=== PATIENT | female | born 1970 | race Caucasian/White ===

== ENCOUNTER 2019-07-05 16:48 | Emergency (ER) | payer OTHER, MEDICAID ==
[~2019-07-05] VITALS: Ht 154.9 cm; Wt 68.9 kg
[~2019-07-05 16:48] MED LIST: DEXT10TA23 PO; SERT50TA PO; topomax
[2019-07-05 17:15] LABS: BASO # 0.1 x10^3/uL (0.0-0.2); BASO % 1 % (0-3); EOS # 0.3 x10^3/uL (0.0-0.7); EOS % 2 % (0-3); HEMOGLOBIN 16.5 g/dL (12.0-15.5); LYMPH % 11 % (24-48); MEAN CORPUSCULAR HEMOGLOBIN 31 pg (25-35); MEAN CORPUSCULAR HGB CONC 33 g/dL (31-37); MEAN CORPUSCULAR VOLUME 93 fL (79-100); MONO # 1.3 x10^3/uL (0.0-1.1); MONO % 7 % (0-9); NEUT # 14.2 x10^3uL (1.8-7.7); NEUT % 79 % (31-73); PLATELET COUNT 329 x10^3/uL (140-400); RED BLOOD COUNT 5.38 x10^6/uL (3.50-5.40); RED CELL DISTRIBUTION WIDTH 13.3 % (11.5-14.5); WHITE BLOOD COUNT 17.9 x10^3/uL (4.0-11.0)
--- NOTE | 2019-07-05 17:27 | PHYS DOC ---
Past History Past Medical History: Anxiety, Depression, Fibromyalgia, Other (JETT DAVIS Jr. DO) Past Surgical History: Hysterectomy, Tonsillectomy (JETT DAVIS Jr. DO) Smoking: Cigarettes Alcohol Use: None Drug Use: None (JETT DAVIS Jr., DO) Adult General Chief Complaint Chief Complaint: ALTERED MENTAL STATUS [facility] HPI Patient is a 48-year-old female who presents with report of altered mental status. Patient was brought in by her daughter after being found with mental status change at home. Daughter states that she had gone into home and found patient lying on floor, stating that initially she was unresponsive. Upon arrival, patient unable to answer questions and is only complaining of neck and back pain with very slurred speech. Daughter indicates that patient's boyfriend had tried to help her with some back pain recently and had picked her up and cracked her back that patient has had an increase in level of pain since that time. Patient's last known normal was 3 days ago. Additional history is limited due to mental status change.[] (JETT DAVIS Jr. DO) Review of Systems Review of Systems Constitutional: Denies fever or chills [] Respiratory: No report of shortness of breath [] Cardiovascular: No additional information not addressed in HPI [] GI: No report of vomiting or diarrhea [] Musculoskeletal: Complains of back and neck pain [] Integument: Denies rash or skin lesions [] Neurologic: Complains of headache. [] All other systems were reviewed and found to be within normal limits, except as documented in this note. (JETT DAVIS Jr. DO) Allergies Allergies Allergies Coded Allergies Type Severity Reaction Last Updated Verified No Known Drug Allergies 01/06/14 No (JETT DAVSI Jr., DO) Physical Exam Physical Exam Constitutional: Well developed, well nourished, appears intoxicated. [] HENT: Normocephalic, atraumatic, bilateral external ears normal, oropharynx moist, no oral exudates, nose normal. [] Eyes: Pupils equal, 3 mm and sluggish to light, EOMI, conjunctiva normal, no discharge. [] Neck: Normal range of motion, supple, no stridor. [] Cardiovascular: Regular rate and rhythm[] Lungs & Thorax: Bilateral breath sounds clear to auscultation [] Abdomen: Bowel sounds normal, soft, no tenderness. [] Skin: Warm, dry, no erythema, no rash. [] Extremities: No tenderness, no cyanosis, no clubbing, ROM intact, no edema. [] Neurologic: Awake and alert, confused, slurred speech, no obvious focal deficits noted. [] (JETT DAVIS Jr., DO) Current Patient Data Lab Results Laboratory Tests Test 07/05/19 16:06 White Blood Count 17.9 x10^3/uL (4.0-11.0) H Red Blood Count 5.38 x10^6/uL (3.50-5.40) Hemoglobin 16.5 g/dL (12.0-15.5) H Hematocrit 50.0 % (36.0-47.0) H Mean Corpuscular Volume 93 fL (79-100) Mean Corpuscular Hemoglobin 31 pg (25-35) Mean Corpuscular Hemoglobin Concent 33 g/dL (31-37) Red Cell Distribution Width 13.3 % (11.5-14.5) Platelet Count 329 x10^3/uL (140-400) Neutrophils (%) (Auto) 79 % (31-73) H Lymphocytes (%) (Auto) 11 % (24-48) L Monocytes (%) (Auto) 7 % (0-9) Eosinophils (%) (Auto) 2 % (0-3) Basophils (%) (Auto) 1 % (0-3) Neutrophils # (Auto) 14.2 x10^3uL (1.8-7.7) H Lymphocytes # (Auto) 2.0 x10^3/uL (1.0-4.8) Monocytes # (Auto) 1.3 x10^3/uL (0.0-1.1) H Eosinophils # (Auto) 0.3 x10^3/uL (0.0-0.7) Basophils # (Auto) 0.1 x10^3/uL (0.0-0.2) Platelet Estimate Pending (JETT DAVIS Jr., DO) EKG EKG [] (JETT DAVIS Jr., DO) EKG Interpretation EKG shows a sinus bradycardia 59 bpm. No acute morphology (CHEMA PEDRAZA MD) Radiology/Procedures Radiology/Procedures [] (JETT DAVIS Jr., DO) Course & Med Decision Making Course & Med Decision Making Pertinent Labs and Imaging studies reviewed. (See chart for details) Patient moved to room upon arrival was evaluated by your medical staff after which an IV was established and blood work drawn. Imaging studies to include head, cervical spine, thoracic and lumbar spine CTs have been ordered and are pending. At this time, workup is pending, and patient is being signed out to Dr. Pedraza at 6:00 PM. (JETT DAVIS Jr. DO) Course & Med Decision Making [address] [address] IMAGING REPORT Signed PATIENT: NIYA ZURITA SACCOUNT: [id number] : 1970 LOCATION: ER AGE: 48 SEX: F EXAM STATUS: REG ER ORD. PHYSICIAN: JETT DAVIS Jr., DO REASON: BACK PAIN; FALL PROCEDURE: CT LUMBAR SPINE WO CONTRAST CT scan of the thoracic and lumbar spine without contrast 10/14/2019 CLINICAL HISTORY: Mid and low back pain post fall. TECHNIQUE: Unenhanced, contiguous, 0.625 mm axial sections were obtained through the thoracic and lumbar spine. 3 mm reconstructed sagittal, axial and coronal images were obtained. One or more of the following individualized dose reduction techniques were utilized for this study: 1. Automated exposure control. 2. Adjustment of the mA and/or kV according to patient size. 3. Use of iterative reconstruction technique. FINDINGS: Sagittal and coronal reconstructed images demonstrate very mild S-shaped curvature of the thoracolumbar spine. Degenerative changes are seen throughout the thoracic and lumbar disc spaces consisting of varying degrees of disc space narrowing, vertebral endplate sclerosis and mild to moderate anterior vertebral body osteophyte formation. Atherosclerotic calcification of the thoracic and abdominal aorta is seen. A 3 mm nonobstructing calculus is seen involving the mid pole of the right kidney. No fracture or subluxation of the thoracic or lumbar vertebrae seen. Degenerative changes are seen involving the facet joints throughout the mid and lower thoracic and lumbar spine. No fracture or subluxation of the thoracic or lumbar vertebrae is seen. IMPRESSION: No fracture or subluxation of the thoracic or lumbar vertebrae is seen. Electronically signed by: Benoit Mendoza MD (07/05/2019 6:33 PM) [facility] DICTATED AND SIGNED BY: BENOIT MENDOZA MD DATE: 07/05/19 436 CC: JETT DAVIS Jr. DO; KAYCE NUNO APRN ~ Procedure Note: Need to determine possible cause of mental status change and headache. Hx. elevated WBC 17. 9, with 85 Segs, UA neg., Tox. screen negative. Flu and Strep neg. CXR no infiltrate. Pt states has chronic back pain and neck pain. Hx. 2 days ago increased headache, malaise, some fever and chills. States she is confused, like if she is drunk. Denies drug or recent alcohol use.. Spinal Tap- risk and benefits discussed with patient. Patient placed in the right lateral position. Sterile Gown and mask and technique. Betadine prep and sterile draping -lumbar interspace L4 and 5. 2% lidocaine injected subcutaneous.. Cannulated with a 20-gauge with return CSF. Samples sent for labs. Antibiotics started after solumedrol and cultures. Discussed presentation, testing and tx. plan with Dr. Simmons and Dr. Mancini - ID. Pt. to transfer to [facility]- Possible need for MRI. Impression: 1. Mental Status Change ( Reportedly nl. mental status 3 days ago) 2. Head Ache- acute onset two days ago with malaise and confusion 3. Chronic Back Pain 4. Leukocytosis 17.9 with 85 Seg 5. Elevated RBC Spinal Tap- 221 6. HTN - accelerated 7. Cervical Adenopathy Viral vs bleed? Possible need for MRI- Will cover for meningitis at this time. (CHEMA PEDRAZA MD) Dragon Disclaimer Dragon Disclaimer This electronic medical record was generated, in whole or in part, using a voice recognition dictation system. (JETT DAVIS Jr. DO) Departure Departure: Disposition: 01 HOME/RESIDENCE PRIOR TO ADM Condition: STABLE Referrals: KAYCE NUNO APRN (PCP) Dragon Disclaimer This chart was dictated in whole or in part using Voice Recognition software in a busy, high-work load, and often noisy Emergency Department environment. It may contain unintended and wholly unrecognized errors or omissions. (CHEMA PEDRAZA MD) JETT DAVIS Jr., DO Jul 05, 2019 17:27 CHEMA PEDRAZA MD Jul 06, 2019 01:15
[2019-07-05 17:30] LABS: AMPHETAMINE/METHAMPHETAMINE NEG (NEG); BARBITURATES NEG (NEG); BENZODIAZEPINES NEG (NEG); CANNABINOIDS NEG (NEG); COCAINE NEG (NEG); METHADONE NEG (NEG); OPIATES NEG (NEG); PHENCYCLIDINE NEG (NEG)
[2019-07-05 17:49] LABS: BACTERIA,URINE 0 /HPF (0-FEW); BILIRUBIN,URINE NEG (NEG); CLARITY,URINE CLEAR; COLOR,URINE YELLOW; GLUCOSE,URINE NEG (NEG); NITRITE,URINE NEG (NEG); RBC,URINE 0 /HPF (0-2); SQUAMOUS EPITHELIAL CELL,UR OCC /LPF; UROBILINOGEN,URINE 0.2 mg/dL (0.2 mg/dL); WBC,URINE 0 /HPF (0-4)
[2019-07-05 17:50] LABS: AMORPHOUS SEDIMENT,UR PRESENT /HPF
[2019-07-05 18:01] LABS: % LYMPHS 9 % (24-48); % MONOS 6 % (0-10); % SEGS 85 % (35-66)
--- NOTE | 2019-07-05 18:01 | RAD ---
Exam: CT head and cervical spine INDICATION: Altered mental status and neck pain TECHNIQUE: Sequential axial images through the head and cervical spine were obtained without the administration of IV contrast. Comparisons: None FINDINGS: Head: No focal parenchymal lesion or hemorrhage is identified. There is no midline shift or sulcal effacement. No acute vascular territory infarction is identified. Bloom-white distinction is preserved. The ventricular system is within normal limits without compression hydrocephalus. The basal cisterns are well maintained. Air-fluid levels noted within the maxillary sinuses bilaterally. Mild mucosal thickening of the ethmoid air cells. No acute fractures. Cervical spine: Straightening of the cervical spine which may be positional. Vertebral body heights are well-maintained. No fracture to the cervical spine. At C5-C6 there is mild bilateral uncovertebral arthropathy without significant neural foraminal or spinal canal stenosis. Several prominent bilateral upper cervical lymph nodes. Otherwise, visualized paraspinal soft tissues are unremarkable. IMPRESSION: 1. No acute intracranial abnormality. Sinus disease described above. 2. Negative CT C-spine for acute traumatic injury. No significant spondylotic change of the cervical spine. 3. Several prominent and mildly enlarged upper cervical lymph nodes bilaterally which are nonspecific and may be reactive. Exposure: One or more of the following in the visualized dose reduction techniques were utilized for this examination: 1. Automated exposure control 2. Adjustment of the MA and/or KV according to patient size Use of iterative of reconstructive technique Electronically signed by: Albina Leach MD (07/05/2019 5:58 PM) [facility]
[2019-07-05 18:02] LABS: PLT ESTIMATE ADEQUATE (ADEQUATE)
--- NOTE | 2019-07-05 18:36 | RAD ---
CT scan of the thoracic and lumbar spine without contrast 10/14/2019 CLINICAL HISTORY: Mid and low back pain post fall. TECHNIQUE: Unenhanced, contiguous, 0.625 mm axial sections were obtained through the thoracic and lumbar spine. 3 mm reconstructed sagittal, axial and coronal images were obtained. One or more of the following individualized dose reduction techniques were utilized for this study: 1. Automated exposure control. 2. Adjustment of the mA and/or kV according to patient size. 3. Use of iterative reconstruction technique. FINDINGS: Sagittal and coronal reconstructed images demonstrate very mild S-shaped curvature of the thoracolumbar spine. Degenerative changes are seen throughout the thoracic and lumbar disc spaces consisting of varying degrees of disc space narrowing, vertebral endplate sclerosis and mild to moderate anterior vertebral body osteophyte formation. Atherosclerotic calcification of the thoracic and abdominal aorta is seen. A 3 mm nonobstructing calculus is seen involving the mid pole of the right kidney. No fracture or subluxation of the thoracic or lumbar vertebrae seen. Degenerative changes are seen involving the facet joints throughout the mid and lower thoracic and lumbar spine. No fracture or subluxation of the thoracic or lumbar vertebrae is seen. IMPRESSION: No fracture or subluxation of the thoracic or lumbar vertebrae is seen. Electronically signed by: Benoit Mendoza MD (07/05/2019 6:33 PM) [facility]
[2019-07-05] MEDS ORDERED: IV RINGERS SOLUTION,LACTATED 1,000 ML IV ONE (19:00)
[2019-07-05] MEDS ORDERED: LIDOCAINE 1% Multi-Dose 20 ML VIAL. ONE (19:39)
[2019-07-05] MEDS ORDERED: MORPHINE SULFATE 10 MG/ML SYRINGE. ONE (19:44)
[2019-07-05] MEDS ORDERED: methylPREDNISolone SOD SUCC PF 125 MG/2 ML VIAL. IV ONE (19:45)
[2019-07-05] MEDS ORDERED: LIDOCAINE 1%/EPI 1:100,000 20 ML VIAL. ONE (19:55)
[2019-07-05 19:57] LABS: INFLUENZA A PATIENT NEGATIVE (NEGATIVE)
[2019-07-05 19:58] LABS: INFLUENZA B PATIENT NEGATIVE (NEGATIVE)
[2019-07-05] MEDS ORDERED: IV NORMAL SALINE 500ML 500 ML ONE (20:37)
[2019-07-05] MEDS ORDERED: IV NORMAL SALINE 100ML 100 ML ONE (20:38)
[2019-07-05] MEDS ORDERED: VANCOMYCIN 1 GM VIAL. ONE (20:38)
[2019-07-05] MEDS ORDERED: VANCOMYCIN 1 GM in IV NORMAL SALINE 250ML 250 ML IV ONE (21:00)
[2019-07-05] MEDS ORDERED: VANCOMYCIN 1.75 GM in IV NORMAL SALINE 500ML 500 ML IV ONE (21:00)
[2019-07-05 21:45] LABS: CSF PROTEIN 45.2 mg/dL (15.0-45.0)
[2019-07-05 21:47] LABS: CSF CLARITY CLEAR; CSF COLOR COLORLESS
[2019-07-05 21:48] LABS: CSF RBC COUNT 221; CSF WBC COUNT 0
[2019-07-05] MEDS ORDERED: ACYCLOVIR SODIUM 1,000 MG in IV DEXTROSE 5% 250 ML IV SCH (22:00)
[2019-07-05] MEDS ORDERED: LABETALOL 20 MG/4 ML DISP.SYRIN. IVP ONE (22:15)
[2019-07-05 22:25] LABS: CALCIUM 9.3 mg/dL (8.5-10.1); CREATININE 0.9 mg/dL (0.6-1.0); GFR 66.3; POTASSIUM 4.1 mmol/L (3.5-5.1)
[2019-07-05] MEDS ORDERED: ACYCLOVIR SODIUM 500 MG/10 ML VIAL IV ONE (22:30)
[2019-07-05] MEDS ORDERED: IV DEXTROSE 5% 250 ML IV ONE (22:30)
[2019-07-05] MEDS ORDERED: AMPICILLIN 2 GM in IV NORMAL SALINE 100ML 100 ML IV STA (22:32)
[2019-07-05] MEDS ORDERED: LABETALOL 100 MG/20 ML VIAL. IV ONE (22:40)
[2019-07-06] MEDS ORDERED: IV NORMAL SALINE 100ML 100 ML ONE (00:22)
[2019-07-06] MEDS ORDERED: AMPICILLIN 500 MG VIAL IV ONE ×2 (00:22→01:00)
[2019-07-06 01:47] VITALS: BP 154/82
== END 2019-07-06 02:04 | disposition short-term general hospital (02) ==
LOC: ER 16:48
DX: R41.82 Altered mental status, unspecified (principal); R51 Headache; D72.829 Elevated white blood cell count, unspecified; R70.0 Elevated erythrocyte sedimentation rate; I10 Essential (primary) hypertension; R59.0 Localized enlarged lymph nodes; G89.29 Other chronic pain; M54.5 Low back pain; M54.6 Pain in thoracic spine; M79.7 Fibromyalgia; F41.9 Anxiety disorder, unspecified; F32.9 Major depressive disorder, single episode, unspecified; F17.210 Nicotine dependence, cigarettes, uncomplicated
CPT/HCPCS: 36415; 51702; 62270; 70450; 72125; 72128; 72131; 80048; 80307; 81001; 82945; 83605; 83735; 84157; 85007; 85025; 85651; 86140; 87040; 87070; 87071; 87075; 87102; 87252; 87804; 87880; 89051; 96361; 96365; 96367; 96375; 99285; G0480; J0133; J0290; J0696; J2930; J3370; J3490; J7040; J7120; 96368

== ENCOUNTER → 2020-01-25 | Outpatient (CLI) | payer MEDICARE ==
--- NOTE | 2020-01-25 11:03 | RAD ---
2 view study right knee Clinical indications: Right knee pain. FINDINGS: No acute fracture or dislocation or lytic process is seen. No significant degenerative joint space narrowing or spurring is seen. There are 2 radiopaque loose bodies within the posterior aspect of the tibial femoral joint compartment. The larger one measures 6 mm. The smaller one measures 4 mm. No knee joint effusion is seen radiographically. IMPRESSION: 2 loose bodies are seen. Electronically signed by: William Bridges MD (01/25/2020 11:00 AM) [facility]
== END | disposition home or self-care (01) ==
LOC: DXRAD 09:07
PROVIDERS: ATTEND Family Medicine
DX: M23.41 Loose body in knee, right knee (principal)
CPT/HCPCS: 73560

== ENCOUNTER → 2020-02-25 | Outpatient (CLI) | payer MEDICARE ==
[2020-02-25 12:17] LABS: BASO # 0.1 x10^3/uL (0.0-0.2); BASO % 1 % (0-3); EOS # 0.4 x10^3/uL (0.0-0.7); EOS % 5 % (0-3); HEMATOCRIT 45.1 % (36.0-47.0); HEMOGLOBIN 15.1 g/dL (12.0-15.5); LYMPH # 2.2 x10^3/uL (1.0-4.8); LYMPH % 27 % (24-48); MEAN CORPUSCULAR HEMOGLOBIN 31 pg (25-35); MEAN CORPUSCULAR HGB CONC 34 g/dL (31-37); MEAN CORPUSCULAR VOLUME 91 fL (79-100); MONO # 0.6 x10^3/uL (0.0-1.1); MONO % 8 % (0-9); NEUT # 4.9 x10^3uL (1.8-7.7); NEUT % 60 % (31-73); PLATELET COUNT 324 x10^3/uL (140-400); RED BLOOD COUNT 4.95 x10^6/uL (3.50-5.40); RED CELL DISTRIBUTION WIDTH 13.5 % (11.5-14.5); WHITE BLOOD COUNT 8.2 x10^3/uL (4.0-11.0)
[2020-02-25 12:21] LABS: ALBUMIN 3.6 g/dL (3.4-5.0); ALBUMIN/GLOBULIN RATIO 0.9 (1.0-1.7); CALCIUM 9.2 mg/dL (8.5-10.1); CREATININE 0.9 mg/dL (0.6-1.0); POTASSIUM 4.5 mmol/L (3.5-5.1); TOTAL BILIRUBIN 0.1 mg/dL (0.2-1.0); TOTAL PROTEIN 7.7 g/dL (6.4-8.2)
[2020-02-26 14:58] LABS: THYROID STIM HORMONE (TSH) 1.441 uIU/mL (0.358-3.740)
== END | disposition home or self-care (01) ==
LOC: LAB 11:01
PROVIDERS: ATTEND Family Medicine
DX: R63.5 Abnormal weight gain (principal); Z79.899 Other long term (current) drug therapy
CPT/HCPCS: 36415; 80053; 80061; 84443; 85025

== ENCOUNTER → 2021-03-27 | Outpatient (CLI) | payer MEDICARE ==
--- NOTE | 2021-03-27 10:38 | CARD ---
MR#: [id number] Date of Study: 03/27/2021 Ordering Physician: TONI CURIEL, Referring Physician: TONI CURIEL, Tech: Loida Wilson SHERMAN APPROVED REPORT EXAM: Two-dimensional and M-mode echocardiogram with Doppler and color Doppler. Other Information Quality : Fair INDICATION CVA/TIA 2D DIMENSIONS RVDd3.0 (2.9-3.5cm)Left Atrium(2D)3.2 (1.6-4.0cm) IVSd1.0 (0.7-1.1cm)Aortic Root(2D)2.5 (2.0-3.7cm) LVDd3.8 (3.9-5.9cm)LVOT Diameter1.9 (1.8-2.4cm) PWd1.0 (0.7-1.1cm)LVDs2.1 (2.5-4.0cm) FS (%) 30.0 %SV46.7 ml LVEF(%)60.0 (>50%) Aortic Valve AoV Peak Maurice.123.4cm/sAoV VTI24.9cm AO Peak GR.6.1mmHgLVOT Peak Maurice.115.4cm/s LVOT VTI 23.35cmAO Mean GR.4mmHg DEREK (VMAX)2.75fh2ETI (VTI)2.79cm2 Mitral Valve MV E Soiartab75.3cm/sMV DECEL SHKT174ac MV A Deghkmca92.2cm/sE/A Ratio1.2 Pulmonary Vein S1 Htilfmxf50.7cm/sD2 Gdllxfcc58.8cm/s LEFT VENTRICLE The left ventricle is normal size. There is normal left ventricular wall thickness. The left ventricu lar systolic function is normal and the ejection fraction is within normal range. The Ejection Fracti on is 55-60%. There is normal LV segmental wall motion. Transmitral Doppler flow pattern is Grade I-a bnormal relaxation pattern. RIGHT VENTRICLE The right ventricle is normal size. There is normal right ventricular wall thickness. The right ventr icular systolic function is normal. ATRIA The left atrium size is normal. The right atrium size is normal. The interatrial septum is intact wit h no evidence for an atrial septal defect or patent foramen ovale as noted on 2-D or Doppler imaging. AORTIC VALVE The aortic valve is not well visualized but functions normally by Doppler interrogation. Doppler and Color Flow revealed no significant aortic regurgitation. There is no significant aortic valvular sten osis. MITRAL VALVE The mitral valve is calcified but opens well. There is no evidence of mitral valve prolapse. There is no mitral valve stenosis. Doppler and Color Flow revealed no mitral valve regurgitation noted. TRICUSPID VALVE The tricuspid valve is normal in structure and function. There is no tricuspid valve regurgitation no shira. There is no tricuspid valve prolapse or vegetation. There is no tricuspid valve stenosis. PULMONIC VALVE The pulmonic valve is not well visualized. Doppler and Color Flow revealed no pulmonic valvular regur gitation. There is no pulmonic valvular stenosis. GREAT VESSELS The aortic root is normal in size. The ascending aorta is normal in size. The IVC is normal in size a nd collapses >50% with inspiration. PERICARDIAL EFFUSION There is no evidence of significant pericardial effusion. Critical Notification Critical Value: No <Conclusion> The left ventricle is normal size. The left ventricular systolic function is normal and the ejection fraction is within normal range. The Ejection Fraction is 55-60%. The interatrial septum is intact with no evidence for an atrial septal defect or patent foramen ovale as noted on 2-D or Doppler imaging. Doppler and Color Flow revealed no significant aortic regurgitation. There is no significant aortic valvular stenosis. Doppler and Color Flow revealed no mitral valve regurgitation noted. There is no tricuspid valve regurgitation noted. Signed by : Alon Mckay MD Electronically Approved : 03/27/2021 10:37:41
== END ==
LOC: ECHO 08:35
PROVIDERS: ATTEND Internal Medicine Cardiovascular Disease
DX: I34.0 Nonrheumatic mitral (valve) insufficiency (principal); I63.9 Cerebral infarction, unspecified; I65.29 Occlusion and stenosis of unspecified carotid artery
CPT/HCPCS: 93306

== ENCOUNTER → 2021-03-28 | Outpatient (CLI) | payer MEDICARE ==
--- NOTE | 2021-03-28 16:18 | RAD ---
MR#: [id number] Date of Study: 03/28/2021 Ordering Physician: TONI WISEMAN, Referring Physician: TONI WISEMAN, Tech: Allie Pompa [place],[facility] APPROVED REPORT Patient Location: OUT-PATIENT Laterality:Bilateral Indications CVA/TIA: Grayscale images of the bilateral carotid vessels demonstrates mild to moderate diffuse atheroscleros is and intimal hyperplasia. Overall based on velocity criteria there is 0 to less than 50% stenosis with antegrade vertebral velocities. Normal ICA to CCA ratios. Risk Factors Hypertension: PAD Smoking Doppler Spectral Velocity Analysis Right Left pCCA 109/18 cm/spCCA 97/15 cm/s mCCA 89/24 cm/smCCA 90/32 cm/s dCCA 79/25 cm/sdCCA 75/19 cm/s ECA 121/23 cm/sECA 105/24 cm/s pICA 70/25 cm/spICA 124/42 cm/s Martha 89/32 cm/smICA 99/32 cm/s dICA 75/25 cm/sdICA 86/29 cm/s Vert. 38/9 cm/sVert. 58/14 cm/s ICA/CCA 0.82ICA/CCA 1.28 Critical Notification Critical Value: No <Conclusion> 1. No significant extracranial carotid arterial disease bilaterally. Signed by : Toni Wiseman, Electronically Approved : 03/28/2021 16:17:28
--- NOTE | 2021-03-28 16:20 | RAD ---
MR#: [id number] Date of Study: 03/28/2021 Ordering Physician: TONI WISEMAN, Referring Physician: TONI WISEMAN, Tech: Allie Pompa RVT,FIDELIAAR APPROVED REPORT Patient Location: OUT-PATIENT Indications Claudication: PAD Grayscale images the bilateral lower extremity arterial vessels demonstrates mild to moderate diffuse atherosclerosis. No significant high-grade obstruction is noted. Velocities are grossly within nor mal limits with triphasic and biphasic waveforms and three-vessel runoff below the knee. Risk Factors Hypertension TIA/CVA History Smoking VELOCITY AND DOPPLER WAVEFORM ANALYSIS RIGHT cm/secWaveformSeverity LEFT cm/secWaveform Severity pCFA 208.2TriphasicpCFA 182.3Triphasic Prof Fem Art. 98.0TriphasicProf Fem Art. 106.0Triphasic Fem Art Prox. 141.3TriphasicFem Art Prox. 162.9Triphasic Fem Art Mid. 129.7TriphasicFem Art Mid. 119.4Triphasic Fem Art Dist. 106.0TriphasicFem Art Dist. 89.3Triphasic Pop Art(Fossa) 62.9TriphasicPop Art(AK) 64.7Triphasic RAC SPECIALIST Prox. 45.2TriphasicPTA Prox. 38.8Triphasic RAC SPECIALIST Dist. 50.6TriphasicPTA Dist. 31.5Triphasic Per Art Prox. 26.2BiphasicPer Art Prox. 34.9Biphasic JUDY Prox. 56.9TriphasicATA Prox. 66.2Triphasic DPA 45TriphasicDPA 48Biphasic Critical Notification Critical Value: No <Conclusion> 1. No significant bilateral lower extremity arterial disease. Signed by : Toni Wiseman, Electronically Approved : 03/28/2021 16:20:01
--- NOTE | 2021-03-28 16:23 | RAD ---
MR#: [id number] Date of Study: 03/28/2021 Ordering Physician: TONI WISEMAN, Referring Physician: TONI WISEMAN, Tech: Allie Pompa RVT,[place] APPROVED REPORT Patient Location: OUT-PATIENT Exam Type: Ankle to Brachial Index Indications Claudication: PAD Ankle-brachial indices as follows: Right brachial 144 Right posterior tibial 146, dorsalis pedis 176 Left posterior tibial 174, dorsalis pedis 170 Right KIM and left KIM at 1.2 Risk Factors Hypertension TIA/CVA History Smoking Pressures/Indices RightABI LeftABI Brachial 144mmHgBrachial Ankle(PT) 146mmHgAnkle(PT) 174mmHg Ankle(DP) 547okSw4.2Ankle(DP) 655mzLb5.2 Critical Notification Critical Value: No <Conclusion> 1. Normal bilateral KIM at 1.2. Signed by : Toni Wiseman, Electronically Approved : 03/28/2021 16:22:55
== END ==
LOC: US 08:51
PROVIDERS: ATTEND Internal Medicine Cardiovascular Disease
DX: I65.23 Occlusion and stenosis of bilateral carotid arteries (principal); I10 Essential (primary) hypertension; Z87.891 Personal history of nicotine dependence
CPT/HCPCS: 93880; 93922; 93925

== ENCOUNTER 2021-05-05 18:24 | Emergency (ER) | payer MEDICARE | END 2021-05-05 19:00 | disposition left against medical advice (07) | LOC: ER 18:24 | DX: K59.00 Constipation, unspecified (principal); Z53.21 Procedure and treatment not carried out due to patient leaving prior to being seen by health care provider ==

== ENCOUNTER → 2021-08-30 | Outpatient (CLI) | payer MEDICARE ==
[2021-08-30 15:06] LABS: ALBUMIN 3.7 g/dL (3.4-5.0); ALBUMIN/GLOBULIN RATIO 0.9 (1.0-1.7); CALCIUM 8.8 mg/dL (8.5-10.1); CREATININE 0.9 mg/dL (0.6-1.0); GFR 65.8; POTASSIUM 3.7 mmol/L (3.5-5.1); TOTAL BILIRUBIN 0.3 mg/dL (0.2-1.0); TOTAL PROTEIN 7.7 g/dL (6.4-8.2)
== END ==
LOC: LAB 13:50
PROVIDERS: ATTEND Internal Medicine Cardiovascular Disease
DX: I10 Essential (primary) hypertension (principal)
CPT/HCPCS: 36415; 80053; 80061

== ENCOUNTER → 2022-03-08 | Outpatient (CLI) | payer MEDICARE ==
--- NOTE | 2022-03-08 15:19 | RAD ---
XR EXAM OF ANKLE_RIGHT 3VIEWS History: Reason: KNEE AND HIP PAIN / Spl. Instructions: / History: Technique: 3 views right ankle Comparison: None. Findings: No dislocation. No acute fracture. Impression: 1. No acute osseous abnormality. Electronically signed by: Neal Eng DO (03/08/2022 3:17 PM) [id number]
--- NOTE | 2022-03-08 15:21 | RAD ---
XR KNEE 1-2 VIEWS, XR KNEE_AP BILAT STANDING History: Reason: KNEE AND HIP PAIN / Spl. Instructions: / History: Technique: 3 views bilateral knees Comparison: January 25, 2020 and January 29, 2016 Findings: Right knee: No dislocation. No acute fracture. Mild patellar spurring. Vascular calcifications. No si gnificant knee joint effusion. Left knee: Postoperative changes left anterior cruciate ligament repair. Moderate left knee degenerat елена changes most prominent within the medial compartment. No significant knee joint effusion. Degener ative changes are progressed compared to 2016 Impression: 1. Moderate left knee DJD. Electronically signed by: Neal Eng DO (03/08/2022 3:19 PM) [id number]
== END ==
LOC: RAD 12:36
PROVIDERS: ATTEND Orthopaedic Surgery Sports Medicine
DX: M17.12 Unilateral primary osteoarthritis, left knee (principal); M76.891 Other specified enthesopathies of right lower limb, excluding foot; M25.861 Other specified joint disorders, right knee; M25.571 Pain in right ankle and joints of right foot; M25.551 Pain in right hip; M25.552 Pain in left hip
CPT/HCPCS: 73565; 73610; 73560-50